=== PATIENT | female | born 1980 | race Caucasian/White ===

== ENCOUNTER 2023-08-30 13:57 | Outpatient (CLI) | payer OTHER, SELFPAY ==
--- NOTE | 2023-08-30 14:45 | NEURO_ITS ---
Impression: # Complains of left lower extremity discomfort around the knee. Not diabetic. History of left knee arthroscopic procedure. # Normal motor and sensory Nerve Conduction Study. # Normal needle/EMG exam. # Clinical correlation recommended. Nerve Conduction Studies Anti Sensory Summary Table Stim Site NR Peak (ms) P-T Amp (?V) Site1 Site2 Delta-P (ms) Dist (cm) Jomar (m/s) Left Saphenous Anti Sensory (Ant Med Mall) 14cm 2.9 3.5 14cm Ant Med Mall 2.9 0.0 Left Sup Fibular Anti Sensory (Ant Lat Mall) 14 cm 2.9 16.5 14 cm Ant Lat Mall 2.9 16.0 55 Left Sural Anti Sensory (Lat Mall) Calf 2.8 10.2 Calf Lat Mall 2.8 16.0 57 Motor Summary Table Stim Site NR Onset (ms) O-P Amp (mV) Site1 Site2 Delta-0 (ms) Dist (cm) Jomar (m/s) Left Peroneal Motor (Vastus Med) Ankle 3.3 3.8 Popit Ankle 8.6 40.0 47 Popit 11.9 3.0 Left Tibial Motor (Abd Pantoja Brev) Ankle 3.7 3.6 Knee Ankle 8.2 42.0 51 Knee 11.9 2.3 F Wave Studies NR F-Lat (ms) L-R F-Lat (ms) Left Peroneal (Mrkrs) (EDB) 52.66 Left Tibial (Mrkrs) (Abd Hallucis) 51.56 EMG Side Muscle Nerve Root Ins Act Fibs Amp Dur Recrt Comment Left AntTibialis Dp Br Fibular L4-5 Nml Nml Nml Nml Nml Left Gastroc Tibial S1-2 Nml Nml Nml Nml Nml Left Fibularis Long Sup Br Fibular L5-S1 Nml Nml Nml Nml Nml Left Flex Dig Long Tibial L5-S2 Nml Nml Nml Nml Nml Left Ext Dig Brev Dp Br Fibular L5, S1 Nml Nml Nml Nml Nml MTDD
== END 2023-08-30 13:58 | disposition home or self-care (01) ==
PROVIDERS: Visit Provider Internal Medicine
DX: M79.662 Pain in left lower leg (principal); R53.1 Weakness; Z98.890 Other specified postprocedural states
CPT/HCPCS: 95886; 95909